=== PATIENT | male | born 1945 | race Caucasian/White ===

== ENCOUNTER 2023-10-28 06:05 | Day surgery (SDC) | payer MEDICARE, SELFPAY ==
[2023-10-28] VITALS (9 sets, daily range): BP systolic 129–152; BP diastolic 64–80; BMI 30.4
[2023-10-28] MEDS: TYLENOL 1000 MG PO (06:49)
[2023-10-28] MEDS: NORMOSOL-R/PLASMALYTE-A 1000 IV (06:49)
[2023-10-28 06:52] LABS: Glucose - Point of Care 267 mg/dl (70-99)
--- NOTE | 2023-10-28 07:29 | W.SUR.PREOP ---
Pre-Operative Surgical Note
-
I have examined this patient prior to the performance of the scheduled procedure.
The patient's condition is unchanged from the time of the current History and
Physical and the patient is able to undergo the scheduled procedure.
--- NOTE | 2023-10-28 09:27 | W.IMMPOSTOP ---
Surgical Immed Post Op Note
-
Primary Surgeon: Kye Tolentino MD
Assisting Surgeon: None
Stone Sawyer: VERNA Moe
Pre-op Diagnosis: Right inguinal hernia
Post-op Diagnosis: Same
Procedure Performed: Open right inguinal hernia repair with mesh
Anesthesia Type: General
Specimen / Cultures: Right inguinal nerve
Estimated Blood Loss: 11 cc
Complications: None
Operative Findings: Significantly denser tissue planes more consistent with scar than anticipated. We did enter the external oblique higher than initially thought and went through the internal oblique exposing the rectus muscle after we
reidentified the correct plane, the internal oblique fascia was sutured back together using a 0 PDS running suture. We then proceeded with our standard open umbilical hernia repair with mesh. The pubic tubercle was identified and the hernia as
well as the spermatic cord was encircled with a [place]. An indirect hernia sac was identified and reduced off of the cord structures. The sac was opened and we confirmed that there was no hernia contents and that there was no femoral defect. A
high ligation of the sac was then performed and the floor was reconstructed with a regular weight Bard mesh sutured at the tubercle, along the external oblique. A slit in the mesh was made to accommodate the cord, this was reapproximated after
reconstructing the deep inguinal ring. The external oblique fascia was then closed over the mesh. The wound was closed in layers and dressed with Dermabond.
[2023-10-28 09:40] LABS: Glucose - Point of Care 326 mg/dl (70-99)
[2023-10-28] MEDS: NOVOLOG vial 6 UNITS SC (09:47)
--- NOTE | 2023-10-28 15:29 | OR.RPT ---
Operative Report
Operative Report
Patient Name: Lloyd Freedman
: 1945
Date of Operation: 10/28/2023
Preoperative Diagnosis: Reducible Inguinal hernia, right
Postoperative Diagnosis: Same
Procedure(s):
Open right inguinal Hernia Repair with mesh
Surgeon(s):
Dr. Tolentino
Bilingual Trainer(s):
VERNA Moe
Anesthesia: General
Estimated Blood Loss: 11 cc
Urine Output: None
Drains/Lines/Implants: 3 x 6 inch Bard Flat Mesh cut to size
Specimens: None
Indication for surgery: The patient has a history of groin pain and some asymmetry noted on exam and was found to have a right inguinal Hernia. Following review of therapeutic options they has elected to undergo an open repair
Operative Findings: Significantly denser tissue planes more consistent with scar than anticipated. We did enter the external oblique higher than initially thought and went through the internal oblique exposing the rectus muscle after we
reidentified the correct plane, the internal oblique fascia was sutured back together using a 0 PDS running suture. We then proceeded with our standard open umbilical hernia repair with mesh. The pubic tubercle was identified and the hernia as
well as the spermatic cord was encircled with a Wykoff. An indirect hernia sac was identified and reduced off of the cord structures. The sac was opened and we confirmed that there was no hernia contents and that there was no femoral defect. A
high ligation of the sac was then performed and the floor was reconstructed with a regular weight Bard mesh sutured at the tubercle, along the external oblique. A slit in the mesh was made to accommodate the cord, this was reapproximated after
reconstructing the deep inguinal ring. The external oblique fascia was then closed over the mesh. The wound was closed in layers and dressed with Dermabond.
Details of the operation:
After induction of general anesthesia, the patient was clipped, prepped and draped in the supine position. A team timeout was performed confirming administration of DVT prophylaxis, IV antibiotics and SCDs. The ASIS and pubic tubercle were marked
and an incision was chosen along the course of a skin line. The skin was anesthestized with Lidocaine. An incision was made through the skin line and dissection carried down through subcutaneous tissue and Suhail's fascia. The superficial
epigastric vein was not identified. Subcutaneous tissues appear to be fairly scarred in despite no history of prior surgery in the area. Erythema was fairly friable as well. A Small Peter wound retractor was used to provide exposure. The external
oblique fibers were then divided in the direction of travel. However after unroofing this, it appeared we were looking at the internal obliques and I recognized that we were higher than anticipated. Nevertheless I followed the inside of this
inferiorly to the pubic tubercle was not able to identify the superficial ring. I then turned my attention back to the external oblique inferiorly and began following dissecting this off of the underlying tissues which was once again fairly scarred
and, it became apparent that there was a lot more external oblique that needed to be freed up, the superficial ring was identified. I turned our attention back to the initial incision through the external oblique and realized that we had
advertently divided through the internal oblique as well and got into the proper plane between these 2 tissues. Is also confirmed that the underlying muscle that we were looking at was in fact the rectus muscle and not the internal oblique fibers.
The internal oblique tissue was then reconstructed using a running 0 PDS suture. We then continued with our standard inguinal hernia approach.
The ilioinguinal nerve was identified and ligated. Dissection was carried down to the floor, which revealed the following:
At the site of the indirect (internal) ring, there was a moderate size protrusion of preperitoneal fat, the hernia sac was identified, dissected and reduced off the cord structures. It was opened and passing a finger into the peritoneum we
confirmed that there was no femoral defect. High ligation of the sac was performed.
A cord lipoma was not identified.
The direct space, floor of the canal revealed no weakness.
The floor of the canal was then reconstructed by placing a 6x3 in BARD flat polypropylene mesh trimmed to size and secured it in place with interrupted 0-PDS sutures medially at the pubic tubercle, inferiorly along the inguinal ligament,
laterally/superiorly in the conjoint tendon. The superior aspect of her mesh did help reinforce our prior incision and the internal oblique. A slit was made in the mesh just wide enough to accommodate the cord this was also reapproximated with the
PDS suture. Care was taken not to injure or entrap any nerves. The external oblique fibers were then closed using a running 2-0 Vicryl suture. Given her high incision on the external obliques it was not possible to completely cover the mesh at the
medial aspect. Suhail's fascia was then closed with interrupted 3-0 Vicryl suture. The skin was closed in layers with interrupted 3-0 vicryl deep dermals followed by a running subcuticular 4-0 Monocryl followed by dermabond. The patient returned
to the Recovery Room in stable condition. Sponge and instrument counts were correct. No specimens sent to Pathology.
I was the attending physician and performed the procedure with assistance from the [employer] above. I was present for all portions of the case, excluding skin closure.
Kye Tolentino MD
== END 2023-10-28 12:01 | disposition home or self-care (01) ==
LOC: SDS 06:05
PROVIDERS: ATTENDING PHYSICIAN Surgery
DX: K40.90 Unilateral inguinal hernia, without obstruction or gangrene, not specified as recurrent (principal)
CPT/HCPCS: 49505; 88305; 82962; C1781